=== PATIENT | female | born 1970 | race Caucasian/White ===

== ENCOUNTER 2018-07-11 09:52 | Emergency (ER) | payer MEDICAID ==
[2018-07-11] MEDS: NICARDipine HCL 30 MG CAPSULE PO (10:41)
[2018-07-11] MEDS: IBUPROFEN 800 MG TAB PO (10:41)
== END 2018-07-11 12:25 | disposition home or self-care (01) ==
LOC: E/R 09:52
DX: I10 Essential (primary) hypertension (principal); R40.2142 Coma scale, eyes open, spontaneous, at arrival to emergency department; R40.2252 Coma scale, best verbal response, oriented, at arrival to emergency department; R40.2362 Coma scale, best motor response, obeys commands, at arrival to emergency department
CPT/HCPCS: 93971; 99284-25